=== PATIENT | male | born 1985 | race Caucasian/White ===

== ENCOUNTER → 2016-06-18 | Outpatient (CLI) | payer BC ==
--- NOTE | 2016-06-18 09:32 | DIAGNOSTIC IMAGING REPORT ---
RIGHT KNEE 4 OR MORE CLINICAL HISTORY: Right knee pain. COMPARISON: None FINDINGS: Alignment of the right knee is anatomic. There is apparent indentation with possible subchondral lucency within the lateral femoral condyle. There is juxtacortical mixed lucent and sclerotic lesion of the medial distal diaphysis of the right femur. The largest component measures 2.9 cm. Joint spaces are preserved. There is no acute fracture or joint effusion. IMPRESSION: 1. No acute fracture or joint effusion of the right knee. 2. Subchondral lucency with cortical irregularity of the lateral femoral condyle which may reflect an osteochondral lesion. 3. Mixed sclerotic and lucent lesion of the distal medial diaphysis of the right femur. This has nonaggressive imaging characteristics and likely reflects a benign bone lesion. Follow-up right knee radiographs in 6 months are recommended. Electronically signed by: Balta Segovia M.D. 06/18/2016 9:31 AM Dictated Date/Time: 06/18/2016 9:13 AM
== END | disposition home or self-care (01) ==
LOC: C.RDSM 13:51
PROVIDERS: ATTEND Internal Medicine
DX: M25.561 Pain in right knee (principal)